=== PATIENT | male | born 1985 | race Caucasian/White ===

== ENCOUNTER 2017-04-21 21:25 | Inpatient (IN) | payer SELFPAY ==
[~2017-04-21] VITALS: Ht 165.1 cm; Wt 70.3 kg
[~2017-04-21 21:25] MED LIST: BUPR1FIL5 SL; CIPR500T94 PO
[2017-04-21] MEDS ORDERED: NOREPINEPHRIN PREMIX 250 ML IV PRN (22:15)
[2017-04-21] MEDS ORDERED: IV NORMAL SALINE 500ML BAG 500 ML IV PRN (22:15)
[2017-04-21] MEDS ORDERED: ACETAMINOPHEN 500 MG TABLET PO ONE (22:30)
[2017-04-21] MEDS: IV NORMAL SALINE 1000ML BAG 1,000 ML IV SCH ×3 (23:00→23:59)
[2017-04-21] MEDS: PIPERACILLIN/TAZOBACTAM 4.5 GM in IV NORMAL SALINE 100ML 100 ML IV SCH (23:49)
--- NOTE | 2017-04-21 23:51 | PHYS DOC ---
Past Medical History Past Medical History: Other Additional Past Medical Histor: Hepatitis C Past Surgical History: Other Additional Past Surgical Histo: right femur-daly in place Alcohol Use: None Drug Use: Heroin, Marijuana Adult General Chief Complaint Chief Complaint: CELLULITIS HPI HPI Patient is a 31 year old male who presents with moderate left hand pain and swelling that began 4 days ago after "shooting up heroin". Patient states he has been doing IV drugs for years. Patient states he developed a fever today and took Benadryl. Patient denies any nausea or vomiting. Review of Systems Review of Systems Constitutional: fever Eyes: Denies change in visual acuity, redness, or eye pain [] HENT: Denies nasal congestion or sore throat [] Respiratory: Denies cough or shortness of breath [] Cardiovascular: No additional information not addressed in HPI [] GI: Denies abdominal pain, nausea, vomiting, bloody stools or diarrhea [] : Denies dysuria or hematuria [] Musculoskeletal: Denies back pain or joint pain [] Integument: left hand swelling and infection. Neurologic: Denies headache, focal weakness or sensory changes [] Endocrine: Denies polyuria or polydipsia [] Current Medications Current Medications Current Medications Medications (Trade) Dose Ordered Sig/Vlad Start Time Stop Time Status Last Admin Dose Admin Acetaminophen (Tylenol) 1,000 mg 1X ONCE 04/21/17 22:30 04/21/17 22:31 DC 04/21/17 23:30 1,000 MG Dobutamine HCl/ Dextrose 250 ml @ 0 mls/hr CONT PRN 04/21/17 22:15 Ketorolac Tromethamine (Toradol) 30 mg 1X ONCE 04/22/17 00:00 04/22/17 00:01 DC 04/21/17 23:49 30 MG Levofloxacin/ Dextrose 150 ml @ 100 mls/hr Q24H 04/21/17 22:30 04/26/17 22:29 04/21/17 00:50 100 MLS/HR Norepinephrine Bitartrate 250 ml @ 0 mls/hr CONT PRN 04/21/17 22:15 Piperacillin Sod/ Tazobactam Sod 4.5 gm/Sodium Chloride 100 ml @ 200 mls/hr Q6HRS 04/22/17 00:00 04/21/17 23:49 200 MLS/HR Sodium Chloride 500 ml @ 1,000 mls/hr PRN Q30MIN PRN 04/21/17 22:15 Allergies Allergies Allergies Coded Allergies Type Severity Reaction Last Updated Verified No Known Drug Allergies 06/01/15 No Physical Exam Physical Exam Constitutional: Well developed, well nourished, no acute distress, non-toxic appearance. [] HENT: Normocephalic, atraumatic, bilateral external ears normal, oropharynx moist, no oral exudates, nose normal. [] Eyes: PERRLA, EOMI, conjunctiva normal, no discharge. [] Neck: Normal range of motion, no tenderness, supple, no stridor. [] Cardiovascular:Heart rate regular rhythm with S2 murmur no gallops. Lungs & Thorax: Bilateral breath sounds clear to auscultation [] Abdomen: Bowel sounds normal, soft, no tenderness, no masses, no pulsatile masses. [] Skin: Right hand with moderate swelling and erythema consistent with cellulitis. There is streaks of cellulitis from the thumb and ring fingers to the forearm. There is an open wound on the left lateral thumb with no drainage. +2 left radial pulse. Cap refill <2 secs to the left hand. Sensation intact to the left hand. Pain on ROM to the fingers. Back: No tenderness, no CVA tenderness. [] Extremities: No tenderness, no cyanosis, no clubbing, ROM intact, no edema. [] Neurologic: Alert and oriented X 3, normal motor function, normal sensory function, no focal deficits noted. [] Psychologic: Affect normal, judgement normal, mood normal. [] Current Patient Data Vital Signs Vital Signs Date Time Temp Pulse Resp B/P (MAP) Pulse Ox O2 Delivery O2 Flow Rate FiO2 04/22/17 00:00 90 125/76 (92) 97 Room Air 04/21/17 22:05 99.9 16 99.9 Lab Values Laboratory Tests Test 04/21/17 23:45 White Blood Count 11.1 x10^3/uL (4.0-11.0) H Red Blood Count 3.87 x10^6/uL (4.30-5.70) L Hemoglobin 11.4 g/dL (13.0-17.5) L Hematocrit 34.0 % (39.0-53.0) L Mean Corpuscular Volume 88 fL (79-100) Mean Corpuscular Hemoglobin 30 pg (25-35) Mean Corpuscular Hemoglobin Concent 34 g/dL (31-37) Red Cell Distribution Width 13.8 % (11.5-14.5) Platelet Count 233 x10^3/uL (140-400) Neutrophils (%) (Auto) 74 % (31-73) H Lymphocytes (%) (Auto) 18 % (24-48) L Monocytes (%) (Auto) 7 % (0-9) Eosinophils (%) (Auto) 0 % (0-3) Basophils (%) (Auto) 1 % (0-3) Neutrophils # (Auto) 8.2 x10^3uL (1.8-7.7) H Lymphocytes # (Auto) 2.0 x10^3/uL (1.0-4.8) Monocytes # (Auto) 0.8 x10^3/uL (0.0-1.1) Eosinophils # (Auto) 0.0 x10^3/uL (0.0-0.7) Basophils # (Auto) 0.1 x10^3/uL (0.0-0.2) Erythrocyte Sedimentation Rate 48 (0-15) H Sodium Level 141 mmol/L (136-145) Potassium Level 3.6 mmol/L (3.5-5.1) Chloride Level 104 mmol/L (98-107) Carbon Dioxide Level 27 mmol/L (21-32) Anion Gap 10 (6-14) Blood Urea Nitrogen 10 mg/dL (8-26) Creatinine 1.0 mg/dL (0.7-1.3) Estimated GFR (Cockcroft-Gault) 87.7 Glucose Level 100 mg/dL (70-99) H Lactic Acid Level 0.6 mmol/L (0.4-2.0) Calcium Level 8.5 mg/dL (8.5-10.1) C-Reactive Protein, Quantitative 51.9 mg/L (0-3.3) H Procalcitonin < 0.10 ng/mL (0.00-0.10) Ethyl Alcohol Level < 10 mg/dL (0-10) Laboratory Tests 04/21/17 23:45 Laboratory Tests 04/21/17 23:45 EKG EKG [] Radiology/Procedures Radiology/Procedures [] Course & Med Decision Making Course & Med Decision Making Pertinent Labs and Imaging studies reviewed. (See chart for details) This is a 31 year old drug user with right hand abscess with cellulitis and a fever from Heroin injection to the left hand. Temp on arrival was 99.9 with a HR of 98, he looks sick. CBC 11.0., BMP with no acute findings, sedimentation rate 48, CMP 51.9. Lactic 0.6. Patient is given IV fluids in the ED. Blood cultures are obtained. Started on vancomycin in the ED. Given 1 g of Tylenol. Left hand x-rays interpreted by Dr. Goodwin were negative for any acute findings. Consulted with Ayala FLEMING for Dr. Melissa manley who will f/u with patient in AM Consulted Dr. Fletcher who accepted patient for admission. Dragon Disclaimer Dragon Disclaimer This electronic medical record was generated, in whole or in part, using a voice recognition dictation system. Departure Departure Impression: Primary Impression: Abscess of left hand Additional Impressions: Cellulitis of left hand Fever Disposition: ADMITTED INPATIENT Admitting Physician: Tomer Fletcher Referrals: NO PCP (PCP) Problem Qualifiers Additional Impressions: Fever Fever type: unspecified Qualified Codes: R50.9 - Fever, unspecified CARLY MURPHY HAND SILVERING SUPERVISOR April 21, 2017 23:51
[2017-04-21 23:58] LABS: BASO # 0.1 x10^3/uL (0.0-0.2); BASO % 1 % (0-3); EOS % 0 % (0-3); HEMOGLOBIN 11.4 g/dL (13.0-17.5); LYMPH % 18 % (24-48); MEAN CORPUSCULAR HEMOGLOBIN 30 pg (25-35); MEAN CORPUSCULAR HGB CONC 34 g/dL (31-37); MEAN CORPUSCULAR VOLUME 88 fL (79-100); MONO % 7 % (0-9); NEUT % 74 % (31-73); PLATELET COUNT 233 x10^3/uL (140-400); RED BLOOD COUNT 3.87 x10^6/uL (4.30-5.70); RED CELL DISTRIBUTION WIDTH 13.8 % (11.5-14.5); WHITE BLOOD COUNT 11.1 x10^3/uL (4.0-11.0)
[2017-04-22] MEDS ORDERED: KETOROLAC TROMETHAMINE 30 MG/ML INJ. IV ONE
[2017-04-22 00:11] LABS: C-REACTIVE PROTEIN 51.9 mg/L (0-3.3); CALCIUM 8.5 mg/dL (8.5-10.1); GFR 87.7; POTASSIUM 3.6 mmol/L (3.5-5.1)
[2017-04-22] MEDS ORDERED: VANCOMYCIN 1GM IVPB FOR OMNI 250 ML IV ONE (00:15)
[2017-04-22] MEDS ORDERED: DIPHTH,PERTUSS(ACELL),TET TOX 0.5 ML DISP.SYRIN. VAX IM ONE (00:30)
[2017-04-22] MEDS ORDERED: VANCOMYCIN 1.75 GM in IV NORMAL SALINE 500ML BAG 500 ML IV ONE (00:30)
[2017-04-22 00:34] LABS: BILIRUBIN,URINE NEGATIVE (NEG); GLUCOSE,URINE NEGATIVE (NEG); NITRITE,URINE NEGATIVE (NEG); PROTEIN,URINE NEGATIVE (NEG-TRACE); UROBILINOGEN,URINE 0.2 mg/dL (0.2 mg/dL)
[2017-04-22 00:41] LABS: BARBITURATES NEG (NEG); BENZODIAZEPINES POS (NEG); CANNABINOIDS NEG (NEG); COCAINE NEG (NEG); METHADONE NEG (NEG); OPIATES POS (NEG); PHENCYCLIDINE NEG (NEG)
[2017-04-22 00:45] LABS: BACTERIA,URINE 0 /HPF (0-FEW); RBC,URINE 0 /HPF (0-2); WBC,URINE OCC /HPF (0-4)
[2017-04-22 00:46] LABS: SQUAMOUS EPITHELIAL CELL,UR OCC /LPF
[2017-04-22] MEDS ORDERED: ONDANSETRON PF 4 MG/2 ML VIAL. IV PRN ×2 (01:30→13:15)
[2017-04-22] MEDS ORDERED: IV NORMAL SALINE 1000ML BAG 1,000 ML IV ONE (01:30)
[2017-04-22 01:35] VITALS: BP 129/75
[2017-04-22] MEDS: MORPHINE SULFATE 4 MG/ML DISP.SYRIN. IV PRN ×2 (03:21→08:50)
[2017-04-22 03:30] VITALS: BP 134/82
[2017-04-22] MEDS: VANCOMYCIN PER PHARMACY MC PRN ×2 (03:46→14:29)
[2017-04-22] MEDS: PIPERACILLIN/TAZOBACTAM 4.5 GM in IV NORMAL SALINE 100ML 100 ML IV SCH ×2 (06:00→12:08)
[2017-04-22 07:00] VITALS: BP 137/94
--- NOTE | 2017-04-22 08:08 | RAD ---
EXAM: Left hand, 3 views. HISTORY: Drug use and pain. COMPARISON: None. FINDINGS: Frontal, lateral and oblique views of the left hand are obtained. There is no fracture, dislocation or subluxation. No foreign body is seen. There is dorsal hand soft tissue prominence which may be due to body habitus or swelling. IMPRESSION: No acute osseous finding or retained foreign body.
[2017-04-22] MEDS ORDERED: NICOTINE 21MG PATCH. TD SCH (09:00)
[2017-04-22] MEDS ORDERED: VANCOMYCIN 1 GM in IV NORMAL SALINE 250ML 250 ML IV SCH (10:00)
[2017-04-22] MEDS ORDERED: MORPHINE SULFATE 4 MG/ML DISP.SYRIN. IV PRN (10:15)
[2017-04-22 11:00] VITALS: BP 123/96
--- NOTE | 2017-04-22 12:14 | PDOC2 ---
CONSULT Date of Consult Date of Consult DATE: 04/22/17 TIME: 11:56 Reason for Consult Reason for Consult: left hand cellulitis Referring Physician Referring Physician: SAJAN Choudhury Identification/Chief Complaint Chief Complaint left hand cellulitis per consult. Patient barely arousable. Source Source: Chart review, Patient History of Present Illness Reason for Visit: extremely difficult to get any history. Patient nearly unarousable--he and his girlfriend are sleeping heavily. Once he awoke, he ignored my questions for 1- 2 minutes, and finally gave defiant answers. I recommended NPO after midnight and surgery tomorrow morning, and he said "I'M LEAVING TODAY." He agreed that he'd been using IV drugs in his left hand and has an infection and has had a fever. Then he rolled over and went back to sleep. I went back to ask him about surgery today and he was unarousable. Social History Drugs: Heroin Current Problem List Problem List Problems Medical Problems: (1) Abscess of left hand Status: Acute (2) Cellulitis of left hand Status: Acute (3) Fever Status: Acute Current Medications Current Medications Current Medications Acetaminophen (Tylenol) 1,000 mg 1X ONCE PO Last administered on 04/21/17 23: 30; Start 04/21/17 at 22:30; Stop 04/21/17 at 22:31; Status DC Sodium Chloride 1,000 ml @ 1,020 mls/hr Q59M IV Last administered on 23:30; Start 04/21/17 at 22:01; Stop 04/22/17 at 00:01; Status DC Sodium Chloride 500 ml @ 1,000 mls/hr PRN Q30MIN PRN IV SEE COMMENTS; Start at 22:15 Levofloxacin/ Dextrose 150 ml @ 100 mls/hr Q24H IV Last administered on 00:50; Start 04/21/17 at 22:30; Stop 04/26/17 at 22:29 Piperacillin Sod/ Tazobactam Sod 4.5 gm/Sodium Chloride 100 ml @ 200 mls/hr Q6HRS IV Last administered on 04/22/17 06:00; Start 04/22/17 at 00:00 Norepinephrine Bitartrate 250 ml @ 0 mls/hr CONT PRN IV SEE I/O RECORD; Start 04/21/17 at 22:15; Stop 04/22/17 at 03:33; Status DC Dobutamine HCl/ Dextrose 250 ml @ 0 mls/hr CONT PRN IV SEE I/O RECORD; Start at 22:15; Stop 04/22/17 at 03:33; Status DC Ketorolac Tromethamine (Toradol) 30 mg 1X ONCE IV Last administered on 23:49; Start 04/22/17 at 00:00; Stop 04/22/17 at 00:01; Status DC Diphtheria/ Tetanus/Acell Pertussis (Boostrix) 0.5 ml ONCE ONCE VAX IM Last administered on 04/22/17 00:31; Start 04/22/17 at 00:30; Stop 04/22/17 at 00:31 ; Status DC Vancomycin HCl 250 ml @ 250 mls/hr 1X ONCE IV ; Start 04/22/17 at 00:15; Stop 04/22/17 at 01:14; Status UNV Vancomycin HCl 1.75 gm/Sodium Chloride 500 ml @ 250 mls/hr 1X ONCE IV Last administered on 04/22/17 02:05; Start 04/22/17 at 00:30; Stop 04/22/17 at 02:29 ; Status DC Vancomycin HCl (Vanco Per Pharmacy) 1 each PRN DAILY PRN MC SEE COMMENTS Last administered on 04/22/17 03:46; Start 04/22/17 at 00:30 Lorazepam (Ativan) 2 mg PRN Q4HRS PRN IV ANXIETY / AGITATION Last administered on 04/22/17 08:41; Start 04/22/17 at 01:15 Ondansetron HCl (Zofran) 4 mg PRN Q8HRS PRN IV NAUSEA/VOMITING; Start 04/22/17 at 01:30; Stop 04/23/17 at 01:29 Morphine Sulfate 4 mg PRN Q2HR PRN IV SEVERE PAIN Last administered on 08:50; Start 04/22/17 at 01:30; Stop 04/23/17 at 01:29 Sodium Chloride 1,000 ml @ 100 mls/hr 1X ONCE IV Last administered on 01:30; Start 04/22/17 at 01:30; Stop 04/22/17 at 11:29; Status DC Nicotine (Nicoderm Cq 21mg) 1 patch DAILY TD Last administered on 04/22/17 08: 41; Start 04/22/17 at 09:00 Vancomycin HCl 1 gm/Sodium Chloride 250 ml @ 250 mls/hr Q8H IV Last administered on 04/22/17 10:25; Start 04/22/17 at 10:00 Vancomycin HCl 1 each 1X ONCE MC ; Start 04/23/17 at 09:30; Stop 04/23/17 at 09 :31 Morphine Sulfate 6 mg PRN Q2HR PRN IV PAIN Last administered on 04/22/17 10:25 ; Start 04/22/17 at 10:15 Active Scripts Active Cipro (Ciprofloxacin Hcl) 500 Mg Tablet 1 Tab PO BID Reported Suboxone 8 Mg-2 Mg Sl Film (Buprenorphine Hcl/Naloxone Hcl) 1 Each Film 2 Strip SL DAILY Allergies Allergies: Coded Allergies: No Known Drug Allergies (Unverified , 06/01/15) Physical Exam General: Other (barely arousable) Extremities: Other (abcess at first webspace of left hand with erythema on to index metacarpophalangeal joint, trace pururlent drainage, focal abscess type swelling erythema warmth and tenderness. Primarily on or overlying the first dorsal interossous muscle. Patient went back to sleep before I could assess sensory or motor function.) Vitals VITALS Vital Signs Date Time Temp Pulse Resp B/P (MAP) Pulse Ox O2 Delivery O2 Flow Rate FiO2 04/22/17 11:00 97.9 66 20 123/96 (105) 96 Room Air 97.9 Labs Labs Laboratory Tests Test 04/21/17 23:45 04/22/17 00:28 04/22/17 03:35 White Blood Count 11.1 x10^3/uL (4.0-11.0) Red Blood Count 3.87 x10^6/uL (4.30-5.70) Hemoglobin 11.4 g/dL (13.0-17.5) Hematocrit 34.0 % (39.0-53.0) Mean Corpuscular Volume 88 fL (79-100) Mean Corpuscular Hemoglobin 30 pg (25-35) Mean Corpuscular Hemoglobin Concent 34 g/dL (31-37) Red Cell Distribution Width 13.8 % (11.5-14.5) Platelet Count 233 x10^3/uL (140-400) Neutrophils (%) (Auto) 74 % (31-73) Lymphocytes (%) (Auto) 18 % (24-48) Monocytes (%) (Auto) 7 % (0-9) Eosinophils (%) (Auto) 0 % (0-3) Basophils (%) (Auto) 1 % (0-3) Neutrophils # (Auto) 8.2 x10^3uL (1.8-7.7) Lymphocytes # (Auto) 2.0 x10^3/uL (1.0-4.8) Monocytes # (Auto) 0.8 x10^3/uL (0.0-1.1) Eosinophils # (Auto) 0.0 x10^3/uL (0.0-0.7) Basophils # (Auto) 0.1 x10^3/uL (0.0-0.2) Erythrocyte Sedimentation Rate 48 (0-15) Sodium Level 141 mmol/L (136-145) Potassium Level 3.6 mmol/L (3.5-5.1) Chloride Level 104 mmol/L (98-107) Carbon Dioxide Level 27 mmol/L (21-32) Anion Gap 10 (6-14) Blood Urea Nitrogen 10 mg/dL (8-26) Creatinine 1.0 mg/dL (0.7-1.3) Estimated GFR (Cockcroft-Gault) 87.7 Glucose Level 100 mg/dL (70-99) Lactic Acid Level 0.6 mmol/L (0.4-2.0) 0.8 mmol/L (0.4-2.0) Calcium Level 8.5 mg/dL (8.5-10.1) C-Reactive Protein, Quantitative 51.9 mg/L (0-3.3) Procalcitonin < 0.10 ng/mL (0.00-0.10) Ethyl Alcohol Level < 10 mg/dL (0-10) Urine Collection Type Unknown Urine Color Yellow Urine Clarity Clear Urine pH 7.0 Urine Specific Hood 1.010 Urine Protein Negative mg/dL (NEG-TRACE) Urine Glucose (UA) Negative mg/dL (NEG) Urine Ketones (Stick) Negative mg/dL (NEG) Urine Blood Negative (NEG) Urine Nitrite Negative (NEG) Urine Bilirubin Negative (NEG) Urine Urobilinogen Dipstick 0.2 mg/dL (0.2 mg/dL) Urine Leukocyte Esterase Negative (NEG) Urine RBC 0 /HPF (0-2) Urine WBC Occ /HPF (0-4) Urine Squamous Epithelial Cells Occ /LPF Urine Bacteria 0 /HPF (0-FEW) Urine Mucus Slight /LPF Urine Opiates Screen Pos (NEG) Urine Methadone Screen Neg (NEG) Urine Barbiturates Neg (NEG) Urine Phencyclidine Screen Neg (NEG) Urine Amphetamine/Methamphetamine Neg (NEG) Urine Benzodiazepines Screen Pos (NEG) Urine Cocaine Screen Neg (NEG) Urine Cannabinoids Screen Neg (NEG) Urine Ethyl Alcohol Neg (NEG) Laboratory Tests Test 04/21/17 23:45 04/22/17 00:28 04/22/17 03:35 White Blood Count 11.1 x10^3/uL (4.0-11.0) Red Blood Count 3.87 x10^6/uL (4.30-5.70) Hemoglobin 11.4 g/dL (13.0-17.5) Hematocrit 34.0 % (39.0-53.0) Mean Corpuscular Volume 88 fL (79-100) Mean Corpuscular Hemoglobin 30 pg (25-35) Mean Corpuscular Hemoglobin Concent 34 g/dL (31-37) Red Cell Distribution Width 13.8 % (11.5-14.5) Platelet Count 233 x10^3/uL (140-400) Neutrophils (%) (Auto) 74 % (31-73) Lymphocytes (%) (Auto) 18 % (24-48) Monocytes (%) (Auto) 7 % (0-9) Eosinophils (%) (Auto) 0 % (0-3) Basophils (%) (Auto) 1 % (0-3) Neutrophils # (Auto) 8.2 x10^3uL (1.8-7.7) Lymphocytes # (Auto) 2.0 x10^3/uL (1.0-4.8) Monocytes # (Auto) 0.8 x10^3/uL (0.0-1.1) Eosinophils # (Auto) 0.0 x10^3/uL (0.0-0.7) Basophils # (Auto) 0.1 x10^3/uL (0.0-0.2) Erythrocyte Sedimentation Rate 48 (0-15) Sodium Level 141 mmol/L (136-145) Potassium Level 3.6 mmol/L (3.5-5.1) Chloride Level 104 mmol/L (98-107) Carbon Dioxide Level 27 mmol/L (21-32) Anion Gap 10 (6-14) Blood Urea Nitrogen 10 mg/dL (8-26) Creatinine 1.0 mg/dL (0.7-1.3) Estimated GFR (Cockcroft-Gault) 87.7 Glucose Level 100 mg/dL (70-99) Lactic Acid Level 0.6 mmol/L (0.4-2.0) 0.8 mmol/L (0.4-2.0) Calcium Level 8.5 mg/dL (8.5-10.1) C-Reactive Protein, Quantitative 51.9 mg/L (0-3.3) Procalcitonin < 0.10 ng/mL (0.00-0.10) Ethyl Alcohol Level < 10 mg/dL (0-10) Urine Collection Type Unknown Urine Color Yellow Urine Clarity Clear Urine pH 7.0 Urine Specific Hood 1.010 Urine Protein Negative mg/dL (NEG-TRACE) Urine Glucose (UA) Negative mg/dL (NEG) Urine Ketones (Stick) Negative mg/dL (NEG) Urine Blood Negative (NEG) Urine Nitrite Negative (NEG) Urine Bilirubin Negative (NEG) Urine Urobilinogen Dipstick 0.2 mg/dL (0.2 mg/dL) Urine Leukocyte Esterase Negative (NEG) Urine RBC 0 /HPF (0-2) Urine WBC Occ /HPF (0-4) Urine Squamous Epithelial Cells Occ /LPF Urine Bacteria 0 /HPF (0-FEW) Urine Mucus Slight /LPF Urine Opiates Screen Pos (NEG) Urine Methadone Screen Neg (NEG) Urine Barbiturates Neg (NEG) Urine Phencyclidine Screen Neg (NEG) Urine Amphetamine/Methamphetamine Neg (NEG) Urine Benzodiazepines Screen Pos (NEG) Urine Cocaine Screen Neg (NEG) Urine Cannabinoids Screen Neg (NEG) Urine Ethyl Alcohol Neg (NEG) Images Images Left hand x-rays and report reviewed. No foreign body or osteomyelitis. Soft tissue swelling. Assessment/Plan Assessment/Plan Left hand abscess. IV drug use. Very difficult and noncompliant patient. I'm concerned that if he leaves AMA this will worsen, and he will get septic and could lose life or limb. I will try to plan I&D today and let him leave today. I spoke to him about that , and he's agreeable to that, as long as he can leave today. Despite the situation, that's probably better than leaving with the abscess. I will call in the OR crew now for urgent I&D and let him leave on po abx after that. He agrees. BRIAN ROBBINS MD April 22, 2017 12:14
[2017-04-22] MEDS ORDERED: NALOXONE 0.4 MG/ML VIAL. IV ONE (12:15)
[2017-04-22] MEDS ORDERED: NALOXONE 0.4 MG/ML VIAL. IV PRN (12:15)
[2017-04-22] MEDS ORDERED: fentaNYL PF VIAL 100 MCG/2 ML VIAL ONE ×2 (12:47→13:34)
[2017-04-22] MEDS ORDERED: DESFLURANE 61 TO 120 MINUTES IH ONE (12:47)
[2017-04-22] MEDS ORDERED: PROPOFOL 20 ML IV ONE ×2 (12:47→13:20)
[2017-04-22] MEDS ORDERED: MIDAZOLAM HCL/PF 2 MG/2 ML VIAL. ONE (12:47)
[2017-04-22] MEDS ORDERED: ONDANSETRON PF 4 MG/2 ML VIAL. ONE (12:48)
[2017-04-22] MEDS ORDERED: LIDOCAINE 2% PF Vial for OR 5 ML VIAL. ONE (12:48)
[2017-04-22] MEDS ORDERED: DEXAMETHASONE SOD PHOS 20 MG/5 ML VIAL. ONE (12:48)
--- NOTE | 2017-04-22 12:55 | SSS ---
ADMIT DATE: 04/22/2017 CHIEF COMPLAINT: Infected left thumb, heroin abuse. HISTORY OF PRESENT ILLNESS: The patient is a pleasant 31-year-old white male, who injects himself of heroin frequently. His thumb has become infected. His girlfriend injects with him. She is here with him. She states that he "hit the wrong site." I discussed the case with the ER physician. We are going to admit the patient, do some wound care and give him IV antibiotics and consult surgery. PAST MEDICAL HISTORY: ____ Heroin addiction, hep C, right femur daly, and marijuana use. ALLERGIES: None. FAMILY HISTORY: Hypertension. SOCIAL HISTORY: He injects heroin. He smokes marijuana, no alcohol. MEDICATIONS: Reviewed, please refer to the MRAD. REVIEW OF SYSTEMS: GENERAL: No history of weight change, weakness or fevers. SKIN: No bruising, hair changes or rashes. EYES: No blurred, double or loss of vision. NOSE AND THROAT: No history of nosebleeds, hoarseness or sore throat. HEART: No history of palpitations, chest pain or shortness of breath on exertion. LUNGS: Denies cough, hemoptysis, wheezing or shortness of breath. GASTROINTESTINAL: Denies changes in appetite, nausea, vomiting, diarrhea or constipation. GENITOURINARY: No history of frequency, urgency, hesitancy or nocturia. NEUROLOGIC: Denies history of numbness, tingling, tremor or weakness. PSYCHIATRIC: No history of panic, anxiety or depression. ENDOCRINE: No history of heat or cold intolerance, polyuria or polydipsia. EXTREMITIES: left thumb pain. PHYSICAL EXAMINATION: VITAL SIGNS: Temperature afebrile, pulse 66, respirations 18, blood pressure 123/96. GENERAL: He is sleeping. He awakens, he is poorly kept, his girlfriend is present. HEART: Distant S1, S2. LUNGS: Clear. ABDOMEN: Soft, positive bowel sounds. EXTREMITIES: No edema. The left thumb has an abscess. SKIN: Poorly kept and some tattoos. ENDOCRINE: No thyromegaly. LYMPHATICS: No cervical nodes. HEMATOPOIETIC: No bruising. ASSESSMENT AND PLAN: Left thumb abscess secondary to heroin injection, start IV antibiotics. Consult surgery and wound care. Continue home meds, frequent labs. The patient states he is leaving against medical advice, I have encouraged him to stay. JEOVANY SCRUGGS DO DR: AARON/zehra JOB#: [id number] / [id number]
[2017-04-22] MEDS ORDERED: BUPIVACAINE-EPI 0.25%-1:200000 MPF 30 ML VIAL. ONE (12:59)
[2017-04-22] MEDS ORDERED: IV RINGERS,LACTATED 1000ML 1,000 ML IV SCH (13:03)
[2017-04-22] MEDS ORDERED: MORPHINE SULFATE 2 MG/ML DISP.SYRIN. IV PRN (13:15)
[2017-04-22] MEDS ORDERED: LIDOCAINE 1% 1 ML SYRINGE. ID PRN (13:15)
[2017-04-22] MEDS ORDERED: HYDROmorphone 2 MG/ML VIAL IV PRN (13:15)
[2017-04-22] MEDS ORDERED: PROCHLORPERAZINE 10 MG/2 ML VIAL. IV PRN (13:15)
[2017-04-22] MEDS ORDERED: fentaNYL PF VIAL 100 MCG/2 ML VIAL IV PRN ×2 (13:15)
--- NOTE | 2017-04-22 13:59 | PDOC4 ---
Operative Note Operative Note Date of Procedure: April 22, 2017 Pre-Op Diagnosis: Left hand abscess Post-Op Diagnosis: Left hand abscess Procedure: Incision and drainage left hand abscess Surgeon: Brian Torres MD Anesthesia: General EBL: 5 mL Specimens Obtained: Cultures, including aerobic and anaerobic Complications: none Drains: none Tourniquet time: 4 minutes Indications for Procedure: The patient is a 31-year-old IV drug user who presented to the hospital with abscess of the left hand after injecting heroin. Initially I recommended he stay overnight to be nothing by mouth after midnight , but he adamantly says he is leaving the hospital today. He has purulent drainage and an obvious abscess in the hand. I recommended urgent drainage, and he has had nothing but clear liquids today. This seems the best course of action for him, to help prevent tissue necrosis, loss of the limb, or from sepsis. The patient and I discussed the risks, benefits and alternatives of surgery. He agreed to proceed with left hand incision and drainage as long as it was performed today. Procedure in Detail: The patient was identified in the preoperative holding area. The correct extremity was marked by me. The patient was taken to the operating room where general anesthesia was used. The patient was positioned supine on the operating table. He remains on schedule doses of vancomycin and Zosyn so no additional dosages were given. A timeout procedure was performed. A tourniquet was placed on the upper arm. The limb was prepared first by chlorhexidine scrub of the hand, simply to wash the hand, and then Betadine paint. Sterile drapes were applied. The limb was elevated to exsanguinate it and the tourniquet inflated to 275 mmHg. The abscess is centered over the first dorsal interosseous muscle, and a longitudinal incision approximately 2 cm in length was used incorporating the central area of purulent drainage. Care was made not to injure the digital nerves. Careful dissection was performed with a 15 blade scalpel through the skin and subcutaneous tissue. Immediate purulent drainage was noted. Cultures were taken. I then did gentle dissection with a hemostat and found a second abscess pocket cavity closer to the webspace. The total volume of the abscess was 3-5 mL's. Careful dissection with a hemostat bluntly throughout the circumference of the incision showed no further abscess cavities. Careful excisional debridement was performed with a rongeurs, of the necrotic subcutaneous tissue associated with the abscess. Copious irrigation was used with saline. The tourniquet was released. Marcaine 0.25% with epinephrine was injected into the skin edges for hemostasis and pain relief. There was not enough bleeding to warrant electrocautery, and I did not want to injure any of the digital sensory nerves with cautery. I did a very loose closure with 2-0 nylon, with 2 simple sutures only, and left the center of the incision and abscess cavity open for additional drainage. Xeroform and a bulky sterile dressing was applied. There were no apparent complications. Needle and sponge counts were correct. The patient returned to the recovery room in stable condition. I will get him a prescription for by mouth antibiotics since he made it clear that he is leaving the hospital today. BRIAN TORRES MD April 22, 2017 13:59
[2017-04-22 14:20] VITALS: BP 135/83
[2017-04-22] MEDS ORDERED: CIPROFLOXACIN HCL 250 MG TABLET. PO SCH (21:00)
[2017-04-23] MEDS ORDERED: BUPRENORPHINE HCL SL SCH (09:00)
[2017-04-23] MEDS ORDERED: NALOXONE HCL SL SCH (09:00)
[2017-04-23] MEDS ORDERED: [UNRECOGNIZED DRUG - OTHER] SL SCH (09:00)
== END 2017-04-22 14:30 | disposition left against medical advice (07) | DRG 580 ==
LOC: ER 21:25 → 4 NORTH 04-22 00:10
PROVIDERS: ADMIT Internal Medicine; ATTEND Internal Medicine
PROC: 0JBK0ZZ Excision of Left Hand Subcutaneous Tissue and Fascia, Open Approach (ICD-10-PCS; 2017-04-22)
PROC: 0J9K0ZX Drainage of Left Hand Subcutaneous Tissue and Fascia, Open Approach, Diagnostic (ICD-10-PCS; principal; 2017-04-22 13:00)
DX: L03.114 Cellulitis of left upper limb (principal); L02.512 Cutaneous abscess of left hand; F19.90 Other psychoactive substance use, unspecified, uncomplicated; F12.90 Cannabis use, unspecified, uncomplicated; F11.10 Opioid abuse, uncomplicated; B19.20 Unspecified viral hepatitis C without hepatic coma; Z82.49 Family history of ischemic heart disease and other diseases of the circulatory system; Z91.19 Patient's noncompliance with other medical treatment and regimen; Z79.899 Other long term (current) drug therapy; Z79.1 Long term (current) use of non-steroidal anti-inflammatories (NSAID); Z79.2 Long term (current) use of antibiotics
CPT/HCPCS: 36415; 73130; 80048; 81001; 83605; 84145; 85027; 85651; 86140; 87071; 87075; 87186; 87205; 90471; 90715; 96365; 96366; 96375; G0480; G0481; J1100; J1885; J1956; J2060; J2250; J2270; J2405; J2543; J2704; J3010; J3370; J7030; J7040; J7050; 99285-25

== ENCOUNTER 2020-01-29 17:46 | Emergency (ER) | payer SELFPAY ==
[~2020-01-29] VITALS: Ht 165.1 cm; Wt 81.8 kg
[2020-01-29 18:09] VITALS: BP 144/102
[2020-01-29] MEDS ORDERED: SULF1TAB24 PO (18:36)
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
== END 2020-01-29 18:43 | disposition home or self-care (01) ==
LOC: ER 17:46
DX: B08.4 Enteroviral vesicular stomatitis with exanthem (principal); R60.0 Localized edema; L53.9 Erythematous condition, unspecified; F11.10 Opioid abuse, uncomplicated; F12.90 Cannabis use, unspecified, uncomplicated; F17.200 Nicotine dependence, unspecified, uncomplicated; Z98.890 Other specified postprocedural states; Z86.19 Personal history of other infectious and parasitic diseases
CPT/HCPCS: 99283

== ENCOUNTER 2020-03-27 11:28 | Emergency (ER) | payer SELFPAY ==
[~2020-03-27] VITALS: Ht 165.1 cm; Wt 25.0 kg
[~2020-03-27 11:28] MED LIST changes: +SULF1TAB24 PO
[2020-03-27 11:37] VITALS: BP 135/68
[2020-03-27] MEDS ORDERED: CEPH500C PO (12:04)
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
== END 2020-03-27 12:16 | disposition home or self-care (01) ==
LOC: ER 11:28
DX: S31.131A Puncture wound of abdominal wall without foreign body, left upper quadrant without penetration into peritoneal cavity, initial encounter (principal); F17.200 Nicotine dependence, unspecified, uncomplicated; Z91.041 Radiographic dye allergy status; X95.01XA Assault by airgun discharge, initial encounter; Y93.89 Activity, other specified; Y92.89 Other specified places as the place of occurrence of the external cause; Y99.8 Other external cause status
CPT/HCPCS: 99283

== ENCOUNTER 2021-12-28 12:38 | Emergency (ER) | payer SELFPAY ==
[~2021-12-28] VITALS: Ht 162.6 cm; Wt 95.0 kg
[~2021-12-28 12:38] MED LIST changes: +CEPH500C PO
[2021-12-28 13:06] VITALS: BP 169/88
[2021-12-28] MEDS ORDERED: DEXAMETHASONE 4 MG TABLET PO ONE (13:45)
[2021-12-28] MEDS ORDERED: IBUPROFEN 200 MG TABLET. PO ONE (13:45)
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
--- NOTE | 2021-12-28 14:27 | RAD ---
XR CHEST 1V History: Reason: cough, fever / Spl. Instructions: / History: Comparison: None. Findings: No consolidation or pleural effusion. Normal heart size. No pneumothorax. Impression: 1. No acute cardiopulmonary process. Electronically signed by: Dimas Higuera DO (12/28/2021 2:25 PM) [facility]
[2021-12-28] MEDS ORDERED: AMOX500C PO (14:32)
--- NOTE | 2021-12-29 15:59 | NUR ---
IP: Attempted to contact pt concerning covid results. No answer, left a voicemail to return the call.
--- NOTE | 2021-12-30 10:08 | NUR ---
IP: Informed pt of negative COVID test. Pt verbalized understanding.
== END 2021-12-28 14:44 | disposition home or self-care (01) ==
LOC: ER 12:38
DX: J02.9 Acute pharyngitis, unspecified (principal); Z91.041 Radiographic dye allergy status; Z20.822 Contact with and (suspected) exposure to COVID-19
CPT/HCPCS: 71045; 87426; 87880; 99284; U0003; U0005

== ENCOUNTER 2022-02-04 22:43 | Emergency (ER) | payer SELFPAY ==
[~2022-02-04] VITALS: Ht 162.6 cm; Wt 70.0 kg
[~2022-02-04 22:43] MED LIST changes: +AMOX500C PO
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
[2022-02-05 00:48] VITALS: BP 134/81
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
== END 2022-02-05 01:07 | disposition left against medical advice (07) ==
LOC: EEVIPCON 22:43 → ER 22:43
DX: S51.812A Laceration without foreign body of left forearm, initial encounter (principal); S09.90XA Unspecified injury of head, initial encounter; M54.2 Cervicalgia; R51.9 Headache, unspecified; F17.200 Nicotine dependence, unspecified, uncomplicated; Y08.89XA Assault by other specified means, initial encounter; Y93.89 Activity, other specified; Y92.89 Other specified places as the place of occurrence of the external cause; Y99.8 Other external cause status
CPT/HCPCS: 70450; 70486; 72125; 73090; 73130; 99284-25